=== PATIENT | female | born 1995 | race Caucasian/White ===

== ENCOUNTER → 2020-03-06 08:38 | Outpatient (CLI) | payer BC, SELFPAY ==
--- NOTE | 2020-03-06 08:45 | US_ITS ---
PROCEDURE: US ABDOMEN LIMITED CLINICAL INDICATION: ABD PAIN Nausea and vomiting abdominal pain COMPARISON: No exams were available for comparison FINDINGS: PANCREAS: Unremarkable. No obvious mass or abnormal fluid collection. No ductal dilatation LIVER: No focal liver lesions demonstrated. Homogeneous echogenicity. No intrahepatic biliary ductal dilatation evident. There is appropriate direction of blood flow within a non dilated portal vein RIGHT KIDNEY: Unremarkable. Normal size and echogenicity. No hydronephrosis GALLBLADDER: No gallstones, gallbladder wall thickening, pericholecystic fluid, or biliary dilatation. Gallbladder does not appear contracted with the phrygian cap noted as a normal variant IMPRESSION: Unremarkable limited abdominal ultrasound as detailed above disc Dictated by: Gregory Castro MD 03/06/2020 13:51 Electronically signed by Gregory Castro MD in [place] 03/06/2020 13:51
== END ==
PROVIDERS: PCP Family Medicine; Referring Provider Family Medicine; Visit Provider Family Medicine
DX: R10.11 Right upper quadrant pain (principal)
CPT/HCPCS: 76705

== ENCOUNTER → 2020-06-03 10:35 | Outpatient (CLI) | payer BC, SELFPAY ==
[2020-06-04 14:18] LABS: Covid-19 Nasal PCR Sendout Lex Not Detected
== END ==
PROVIDERS: PCP Family Medicine; Visit Provider Internal Medicine Adolescent Medicine
DX: Z20.828 Contact with and (suspected) exposure to other viral communicable diseases (principal)
CPT/HCPCS: U0004

== ENCOUNTER → 2021-07-08 04:55 | Outpatient (CLI) | payer OTHER, SELFPAY ==
[2021-07-08 05:13] LABS: Coronavirus 19, PCR Not Detected (NotDetected); Influenza A, PCR Not Detected (NotDetected); Influenza B, PCR Not Detected (NotDetected)
== END ==
PROVIDERS: PCP Family Medicine; Visit Provider Emergency Medicine
DX: Z20.822 Contact with and (suspected) exposure to COVID-19 (principal)
CPT/HCPCS: C9803; U0003; U0005

== ENCOUNTER → 2022-03-07 02:18 | Outpatient (CLI) | payer OTHER, SELFPAY ==
--- NOTE | 2022-03-07 02:28 | XR_ITS ---
PROCEDURE INFORMATION: Exam: XR Chest Exam date and time: 03/07/2022 2:21 AM Age: 26 years old Clinical indication: Other: Congestion, upper respiratory infection TECHNIQUE: Imaging protocol: XR of the chest. Views: 2 views. COMPARISON: No relevant prior studies available. FINDINGS: Lungs: Unremarkable. No consolidation. Pleural spaces: No pleural effusion. No pneumothorax. Heart/Mediastinum: Normal heart size. Bones/joints: Unremarkable. IMPRESSION: No acute findings.
== END ==
PROVIDERS: PCP Family Medicine; Visit Provider Emergency Medicine
DX: J06.9 Acute upper respiratory infection, unspecified (principal)
CPT/HCPCS: 71046

== ENCOUNTER 2022-07-30 16:23 | Emergency (ER) | payer OTHER, SELFPAY ==
--- NOTE | 2022-07-30 17:14 | ED_ITS ---
Discharge Plan Disposition Patient Disposition: Home, Self-Care Condition: Good Prescriptions Prescriptions: New prednisone [prednisone] 20 mg tablet 20 mg PO BID 5 Days Qty: 10 0RF whlbvncpukyfzuv-ahfxuyzwv-CL [Bromfed DM] 2-30-10 mg/5 mL Syrup 5 - 10 ml PO Q4H PRN (Reason: Cough) Qty: 240 0RF amoxicillin-pot clavulanate 875-125 mg Tablet 1 tab PO Q12H Qty: 20 0RF Referrals Follow up/Referrals: Wale Mejia MD [Primary Care Provider] - See instructions Discharge ED Provider: Bonnie Fang [facility] [place] HPI General Stated complaint: runny nose, congestion, na Time Seen by Provider: 07/30/22 17:14 History of Present Illness Provider Complaint: Runny nose, headache, cough, congestion, sore throat X 3 days. No fever. Nausea from sinus drainage. OTC meds have not helped. Home COVID negative. Onset (ago): day(s) (3) Relieving factors: none Exacerbating factors: none Associated symptoms: denies other symptoms Treatments prior to arrival: other (CLaritin-D, robitussin) Related Data Previous Rx's Medication Instructions Recorded amoxicillin 875 mg-potassium 1 tab PO Q12H #20 tabs 07/30/22 clavulanate 125 mg tablet kkessnmxzyspnfb-pfzrssrjgavwxza-NH 5 - 10 ml PO Q4H PRN Cough #240 mL 07/30/22 2 mg-30 mg-10 mg/5 mL oral syrup (Bromfed DM) prednisone 20 mg tablet 20 mg PO BID 5 days #10 tabs 07/30/22 Allergies Allergy/AdvReac Type Severity Reaction Status Date / Time No Known Allergies Allergy Unverified 07/30/22 17:20 PFSH PFS Social History Smoking Status: Never smoker alcohol intake: never current occupational status: employed Travel in the last 8 weeks: None ROS Obtained: Yes All systems reviewed & no additional complaints except as documented Constitutional Constitutional: Denies fever(s) and Reports malaise ENT Ears, Nose, Mouth, and Throat: Reports nasal congestion, Reports nasal discharge, Reports sinus pain, Reports sinus pressure and Reports sore throat Respiratory Respiratory: Reports chest congestion and Reports cough Gastrointestinal Gastrointestingal: Reports nausea Physical Exam General General appearance: alert and in no apparent distress Head Head exam: normocephalic Eye Eye exam: Present PERRL ENT ENT exam: Present TM's normal bilaterally Expanded ENT Exam Nose exam: Present sinus tenderness Throat exam: Present other (thick PND) Chest Chest inspection: Present normal inspection and symmetric chest wall rise Respiratory Respiratory exam: Present normal lung sounds bilaterally and respiratory distress Cardiovascular Cardiovascular exam: Present regular rate and normal rhythm Abdominal Exam Abdominal exam: Present soft Neurological Exam Neurological exam: Present alert and oriented X3 Psychiatric Psychiatric exam: Present normal affect and normal mood Skin Skin exam: Present warm, dry and intact Medical Decision Making Bang Inquiry Pt receiving controlled substance: No
[2022-07-30 17:15] VITALS: BP 109/76; PULSE 111; RESP 18; TEMP 37.2; O2SAT 97; BMI 28.1
[2022-07-30 17:32] VITALS: BP 109/76; PULSE 111; RESP 18; TEMP 37.2; O2SAT 97
== END 2022-07-30 17:32 | disposition home or self-care (01) ==
PROVIDERS: Emergency Provider Physician Assistant; PCP Family Medicine
DX: J32.9 Chronic sinusitis, unspecified (principal)
CPT/HCPCS: 99212; G0463

== ENCOUNTER 2024-02-26 08:03 | Emergency (ER) | payer OTHER, SELFPAY ==
[2024-02-26 08:20] VITALS: BP 128/69; PULSE 79; RESP 20; TEMP 36.7; O2SAT 99; BMI 29.6
--- NOTE | 2024-02-26 08:28 | EXP.UTC ---
Discharge Plan Disposition Patient Disposition: Home, Self-Care Condition: Good Prescriptions Prescriptions: New cephalexin 500 mg capsule 500 mg PO QID 7 Days Qty: 28 0RF PNV no.762-ovhi-aamkx acid 28 mg iron- 800 mcg tablet 1 tab PO DAILY 30 Days Qty: 30 5RF Referrals Follow up/Referrals: Wale Mejia MD [Primary Care Provider] - See instructions Activity Restrictions/Add. Instructions Additional Instructions/Restrictions: Drink plenty of fluids. Take tylenol or ibuprofen for pain or fever. Take the medications as directed. Follow up with your regular doctor. GO TO THE ER FOR ANY WORSENING SYMPTOMS We will culture the urine. That will tell what bacteria is causing your infection and which antibiotics will treat it best. Sometimes the first antibiotic we prescribe turns out to not work against different bacteria. So, make sure you follow up within 3 days if you are not getting better. Clinical Impressions Clinical Impression: UTI (urinary tract infection), Instructions Patient Instructions: Diet, Urine Culture, DI for Urinary Tract Infection (UTI) Discharge ED Provider: Ajit Luque [facility] General Stated complaint: frequent urination bladder pain Time Seen by Provider: 02/26/24 08:28 History of Present Illness Provider Complaint: She states that for the past 3 days she has dysuria, urinary frequency. Her period is several days late also. Related Data Previous Rx's Medication Instructions Recorded cephalexin 500 mg capsule 500 mg PO QID 7 days #28 caps 02/26/24 vitamins no.121-iron 28 1 tab PO DAILY 30 days #30 tabs 02/26/24 mg-folic acid 800 mcg tablet Allergies Allergy/AdvReac Type Severity Reaction Status Date / Time No Known Allergies Allergy Unverified 07/30/22 17:20 [facility] Disclaimer: The information contained in this section may have been updated after the patient was seen, as this information can be updated by other users. Medical History (Updated 02/26/24 @ 08:54 by Ajit Luque APRN) No significant past medical history Social History (Updated 07/30/22 @ 17:22 by JOHNATHAN Glynn) Smoking Status: Never smoker alcohol intake: never current occupational status: employed Travel in the last 8 weeks: None ROS Obtained: Yes All systems reviewed & no additional complaints except as documented Constitutional Constitutional: Reports system reviewed and no additional complaints, except as documented, Denies chills and Denies fever(s) Eyes Eyes: Denies eye discharge ENT Ears, Nose, Mouth, and Throat: Denies dysphagia, Denies sore throat and Denies throat swelling Cardiovascular Cardiovascular: Denies chest pain and Denies dyspnea Respiratory Respiratory: Denies chest congestion, Denies cough and Denies dyspnea Gastrointestinal Gastrointestingal: Denies abdominal pain, constipation, diarrhea, dysphagia, nausea or vomiting Genitourinary Female Genitourinary: Reports as per HPI, Reports dysuria, Reports urinary frequency, Denies urinary incontinence, Reports urinary hesitancy and Reports urinary urgency Musculoskeletal Musculoskeletal: Denies arthralgias and Reports back pain Integumentary/Breasts Skin/Breast: Denies rash Neurologic Neurologic: Denies paresthesias Allergic/Immunologic Allergic/Immunologic: Denies throat swelling Physical Exam General General appearance: alert and in no apparent distress Head Head exam: atraumatic and normocephalic Eye Eye exam: Present normal appearance, PERRL and EOMI ENT ENT exam: Present normal exam, mucous membranes moist, TM's normal bilaterally and normal external ear exam Neck Neck exam: Present normal inspection, full ROM and trachea midline; Absent tenderness, meningismus or lymphadenopathy Chest Chest inspection: Present normal inspection and symmetric chest wall rise; Absent tenderness Respiratory Respiratory exam: Present normal lung sounds bilaterally; Absent respiratory distress, wheezes or stridor Cardiovascular Cardiovascular exam: Present regular rate, normal rhythm and normal heart sounds Abdominal Exam Abdominal exam: Present soft and normal bowel sounds; Absent distention, tenderness, guarding, rebound, rigidity, incision, psoas sign, obturator sign, heel tap sign, Oliver's sign, Rovsing's sign or tenderness at McBurney's Point Extremities Exam Extremities exam: Present normal inspection, full ROM and normal capillary refill; Absent tenderness, edema, joint swelling, calf tenderness or cyanosis Back Exam Back exam: Present normal inspection and full ROM; Absent tenderness, CVA tenderness (R) or CVA tenderness (L) Neurological Exam Neurological exam: Present alert, oriented X3 and normal gait Psychiatric Psychiatric exam: Present normal affect and normal mood Skin Skin exam: Present warm, dry, intact and normal color Lymphatic Lymphatic Findings: no adenopathy Medical Decision Making Medical Records Medical records reviewed: No I reviewed the patient's medical records. Bang Inquiry Pt receiving controlled substance: No Lab Data Lab results reviewed: Yes I reviewed the patient's lab results.
[2024-02-26 08:40] LABS: Apearance,Urine Cloudy (Clear); Bilirubin,Urine Negative (Negative); Blood, Urine 3+ (Negative); Color,Urine Yellow (Yellow); Glucose,Urine (UA) Negative (Negative); Ketones,Urine Negative (Negative); Protein,Urine 2+ (Negative); Specific Gravity, Urine >= 1.030 (1.005-1.030)
[2024-02-26 08:41] LABS: UTC Leukocyte Esterase,Urine 2+ (Negative); UTC Nitrate,Urine Negative (Negative); UTC Pregnancy Test, Urine Positive (Negative); Urobilinogen,Urine 1 EU/dl (0.2)
[2024-02-26 08:58] VITALS: BP 128/69; PULSE 79; RESP 20; TEMP 36.7; O2SAT 99
== END 2024-02-26 09:03 | disposition home or self-care (01) ==
PROVIDERS: Emergency Provider Nurse Practitioner Family; PCP Family Medicine
DX: O23.41 Unspecified infection of urinary tract in pregnancy, first trimester (principal); Z3A.01 Less than 8 weeks gestation of pregnancy; R30.0 Dysuria; R35.0 Frequency of micturition
CPT/HCPCS: 81003; 81025; 87086; 99212; 99214; G0463

== ENCOUNTER 2024-04-21 09:01 | Emergency (ER) | payer OTHER, SELFPAY ==
[2024-04-21 09:10] VITALS: BP 107/71; PULSE 87; RESP 20; TEMP 36.9; O2SAT 97; BMI 30.9
[2024-04-21 09:25] LABS: Influenza A, PCR Not Detected (NotDetected); Influenza B, PCR Not Detected (NotDetected)
--- NOTE | 2024-04-21 09:37 | ED_ITS ---
Discharge Plan Disposition Patient Disposition: Home, Self-Care Condition: Good Prescriptions Prescriptions: New azithromycin 250 mg tablet 250 mg PO DIRECTED Qty: 6 0RF Rx Instructions: Take two (2) tablets on day #1, then one (1) tablet day #2 thru #5 No Action PNV no.054-oorb-vbkbq acid 28 mg iron- 800 mcg tablet 1 tab PO DAILY 30 Days Qty: 30 5RF Referrals Follow up/Referrals: Wale Mejia MD [Primary Care Provider] - See instructions Activity Restrictions/Add. Instructions Additional Instructions/Restrictions: Start antibiotic patient to take as ordered for a full length of time even if you feel better. Sinus infections do not get better overnight. It may take 2-3 days to notice much improvement so be sure to use conservative measures as discussed for symptoms. Increase fluids Humidifier/vaporizer as needed Tylenol as needed for fever or pain. If symptoms do not improve or get worse return or be seen in the ER Follow-up with primary care this week Clinical Impressions Clinical Impression: COVID-19 Sinusitis Qualifiers: Sinusitis location: maxillary Chronicity: acute Recurrence: non-recurrent Qualified Code(s): J01.00 - Acute maxillary sinusitis, unspecified Instructions Patient Instructions: Sinusitis, DI for Sinusitis, DI for COVID-19 (Suspected or Confirmed ) Discharge ED Provider: Fabienne ([facility])Birgit [facility] [place] HPI General Stated complaint: cough congestion mucus drainage Mode of Arrival: Ambulatory Source of Information: Patient Limitations: No Limitations Time Seen by Provider: 04/21/24 09:37 Description of Symptoms (Recalled from Triage Doc. by RN): PATIENT C/O COUGH AND CONGESTION SINCE YESTERDAY MORNING. PATIENT IS 14 WEEKS HEENT Symptoms (Recalled from RN notes): Yes Resp Symptoms (Recalled from RN notes): Yes Skin Symptoms (Recalled from RN notes): No MS Symptoms (Recalled from RN notes): No Functional Status (Recalled from RN notes): WNL History of Present Illness Provider Complaint: 28 yr old female presents for cough, pressure and congestion. pt states it feels like it does when she has a sinus infection. Related Data Previous Rx's Medication Instructions Recorded vitamins no.121-iron 28 1 tab PO DAILY 30 days #30 tabs 02/26/24 mg-folic acid 800 mcg tablet azithromycin 250 mg tablet 250 mg PO DIRECTED #6 tabs 04/21/24 Allergies Allergy/AdvReac Type Severity Reaction Status Date / Time No Known Allergies Allergy Unverified 07/30/22 17:20 Worker's Comp Is this a Worker's Comp case?: No [facility] Disclaimer: The information contained in this section may have been updated after the patient was seen, as this information can be updated by other users. Medical History , [employer]) No significant past medical history Social History , [employer]) Smoking Status: Never smoker alcohol intake: never current occupational status: employed Travel in the last 8 weeks: None ROS Obtained: Yes All systems reviewed & no additional complaints except as documented Constitutional Constitutional: Reports system reviewed and no additional complaints, except as documented and Reports as per HPI Eyes Eyes: Reports system reviewed and no additional complaints, except as documented ENT Ears, Nose, Mouth, and Throat: Reports system reviewed and no additional complaints, except as documented, Reports as per HPI, Reports nasal congestion, Reports nasal discharge, Reports sinus pain and Reports sinus pressure Cardiovascular Cardiovascular: Reports system reviewed and no additional complaints, except as documented Respiratory Respiratory: Reports system reviewed and no additional complaints, except as documented, Reports as per HPI, Reports chest congestion and Reports cough Gastrointestinal Gastrointestingal: Reports system reviewed and no additional complaints, except as documented Integumentary/Breasts Skin/Breast: Reports system reviewed and no additional complaints, except as documented Neurologic Neurologic: Reports system reviewed and no additional complaints, except as documented Hematologic/Lymphatic Henatologic/Lymphatic: Reports system reviewed and no additional complaints, except as documented Physical Exam General General appearance: alert and in no apparent distress Eye Eye exam: Present normal appearance ENT ENT exam: Present mucous membranes moist and TM's normal bilaterally Respiratory Respiratory exam: Present normal lung sounds bilaterally Cardiovascular Cardiovascular exam: Present regular rate and normal rhythm Neurological Exam Neurological exam: Present alert and oriented X3 Skin Skin exam: Present warm and intact Medical Decision Making Medical Records Medical records reviewed: Yes I reviewed the patient's medical records. Bang Inquiry Pt receiving controlled substance: No Bang was queried for this patient: No Vital Signs: 04/21/24 09:10 Temperature 98.4 F Temperature Source Oral Pulse Rate [Left Brachial] 87 Respiratory Rate 20 Blood Pressure [Left Arm] 107/71 L Blood Pressure Mean [Left Arm] 83 Blood Pressure Source [Left Arm] Automatic Cuff Blood Pressure Position [Left Arm] Sitting 02 Sat by Pulse Oximetry 97 Oxygen Delivery Method Room Air Lab Data Lab results reviewed: Yes I reviewed the patient's lab results. Orders (Tests/Meds): ORDERS Category Date Time Status Rapid PCR Covid and Flu A/B Stat Lab 04/21/24 09:20 Received
[2024-04-21 09:51] LABS: Coronavirus 19, PCR Detected (NotDetected)
[2024-04-21 10:04] VITALS: BP 107/71; PULSE 87; RESP 20; TEMP 36.9; O2SAT 97
== END 2024-04-21 10:06 | disposition home or self-care (01) ==
PROVIDERS: Emergency Provider Nurse Practitioner Family; PCP Family Medicine
DX: O98.512 Other viral diseases complicating pregnancy, second trimester (principal); U07.1 COVID-19; J01.00 Acute maxillary sinusitis, unspecified; R05.9 Cough, unspecified; R09.81 Nasal congestion; Z3A.14 14 weeks gestation of pregnancy
CPT/HCPCS: 87636; 99212; 99214; G0463

== ENCOUNTER 2024-04-22 08:53 | Emergency (ER) | payer OTHER, MEDICAID, SELFPAY ==
[2024-04-22 08:55] VITALS: BP 143/85; PULSE 113; RESP 20; TEMP 36.9; O2SAT 99; BMI 30.8
--- NOTE | 2024-04-22 09:01 | PC.NURSE ---
Dr. Nelson at bedside
--- NOTE | 2024-04-22 09:10 | PC.NURSE ---
Dr. Nelson at bedside with POCUS
[2024-04-22] MEDS: LACTATED RINGERS 1000ML 1,000 ML 999 ML IV (09:20)
[2024-04-22] MEDS: ACETAMINOPHEN 1,000MG/100ML VIAL 1000 MG IV (09:20)
[2024-04-22 09:34] VITALS: PULSE 98
--- NOTE | 2024-04-22 09:36 | ED_ITS ---
Discharge Plan Disposition Patient Disposition: Home, Self-Care Chief Complaint: Upper Respiratory Infection Prescriptions Prescriptions: No Action PNV no.871-zcxz-jfmro acid 28 mg iron- 800 mcg tablet 1 tab PO DAILY 30 Days Qty: 30 5RF azithromycin 250 mg tablet 250 mg PO DIRECTED Qty: 6 0RF Rx Instructions: Take two (2) tablets on day #1, then one (1) tablet day #2 thru #5 Referrals Follow up/Referrals: Wale Mejia MD [Primary Care Provider] - See instructions Clinical Impressions Clinical Impression: COVID-19 affecting in second trimester Discharge ED Provider: Paco Nelson General Adult HPI General Chief complaint: Upper Respiratory Infection Stated complaint: covid pos, chest congestion, SOA, 17 weeks antepar Time Seen by Provider: 04/22/24 08:59 Mode of Arrival: Ambulatory Source of Information: Patient Limitations: No Limitations Description of Symptoms (Recalled from ER Triage Doc. by RN): covid,increased congestion,cough, History of Present Illness HPI narrative: Patient is a 28-year-old previously healthy female who is a G1, P0 at 14 weeks gestational age presenting today with generalized malaise and concerns with a recent COVID positive test in the setting of . She went to urgent treatment clinic a few days ago and was prescribed a Z-Ming she also took Mucinex got concerned for several reasons including the side effects of those medications but as well as people on Facebook telling her that she needed to be anticoagulated for concern for clot. Patient states that she has had some nasal congestion but no other significant symptoms. Last used Tylenol yesterday. Has not had any medications today. Related Data Previous Rx's Medication Instructions Recorded vitamins no.121-iron 28 1 tab PO DAILY 30 days #30 tabs 02/26/24 mg-folic acid 800 mcg tablet azithromycin 250 mg tablet 250 mg PO DIRECTED #6 tabs 04/21/24 Allergies Allergy/AdvReac Type Severity Reaction Status Date / Time No Known Allergies Allergy Unverified 07/30/22 17:20 [facility] Disclaimer: The information contained in this section may have been updated after the patient was seen, as this information can be updated by other users. 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 significant past medical history Social History , GENERAL OPERATIONS AGENT) Smoking Status: Never smoker alcohol intake: never current occupational status: employed Travel in the last 8 weeks: None ROS Obtained: Yes All systems reviewed & no additional complaints except as documented Physical Exam General General appearance: alert and in no apparent distress Respiratory Respiratory exam: Present normal lung sounds bilaterally and other (Oxygen saturation is 98% on room air no focal adventitious lung sounds no respiratory distress speaking in full sentences); Absent respiratory distress Cardiovascular Cardiovascular exam: Present regular rate, normal rhythm and other (Heart rate in the mid 90s on my exam) Neurological Exam Neurological exam: Present alert and oriented X3 Medical Decision Making Bang Inquiry Pt receiving controlled substance: No Vital Signs: 04/22/24 08:55 04/22/24 09:34 04/22/24 10:00 Temperature 98.4 F Temperature Source Oral Pulse Rate 98 H 76 Pulse Rate [Right] 113 H Respiratory Rate 20 Blood Pressure 114/69 Blood Pressure [Right Arm] 143/85 H Blood Pressure Mean [Right Arm] 104 02 Sat by Pulse Oximetry 99 98 Oxygen Delivery Method Room Air Room Air 04/22/24 10:30 Temperature Temperature Source Pulse Rate 74 Pulse Rate [Right] Respiratory Rate Blood Pressure 109/62 L Blood Pressure [Right Arm] Blood Pressure Mean [Right Arm] 02 Sat by Pulse Oximetry 97 Oxygen Delivery Method Room Air Orders (Tests/Meds): ED MEDICATIONS Discontinued Medications Generic Name Dose Route Start Last Admin Trade Name Freq PRN Reason Stop Dose Admin Acetaminophen 1,000 mg 04/22/24 09:15 04/22/24 09:20 Acetaminophen 1,000mg/100ml Vial IV 04/22/24 09:16 1,000 mg ONCE ONE Administration Lactated Ringer's 1,000 mls @ 999 mls/hr 04/22/24 09:15 04/22/24 09:20 Lactated Ringer's 1000 Ml Bag IV 04/22/24 10:15 999 mls/hr .Q1H1M HARJINDER Administration ORDERS Category Date Time Status POCUS Point of Care (ER Only) Stat Exams 04/22/24 09:04 Ordered Medical Decision Narrative: Patient is a very well-appearing 28-year-old female who has COVID-19 in the setting of . Limited bedside ultrasound indicates that there is a single living IUP consistent with dates she has had normal movements there is normal amniotic fluid etc. on this ultrasound. Baby does not appear to be in any significant distress. Additionally she does not have any significant abdominal pain vaginal bleeding loss of fluid etc. Only complaint is nasal congestion and generalized malaise. I have advised that she stop taking azithromycin which is not indicated given the viral infection. Also reassured her regarding the medication she took earlier today, Mucinex. I advised that she avoid most medications would not be helpful other than Tylenol and potentially Benadryl if she is having significant secretions. We discussed the risk and benefits of Paxlovid and I discussed with her that there is limited information to definitively suggest this will prescribe this in . I also discussed with her that there is no significant evidence to suggest that anticoagulation or antiplatelet therapy in has changed or shown any positive outcomes and that I do not prescribe aspirin in with COVID. She is reassured about this. I do not suspect pulmonary embolism in this particular case either. I will give her IV fluids and Tylenol and reassess. Reassessment 10:43 AM patient feeling much better heart rate in the 70s she is stable for discharge and close outpatient follow-up. Procedures Miscellaneous Procedure Procedure Performed: Limited OB ultrasound Indication: COVID-19 in the setting of . Identified structures: [-Uterus -Left adnexa -Right adnexa -Pouch of Eric] Findings: Uterus: Definitive IUP consistent with dates heart rate 162 Right adnexa: No free fluid Left adnexa: No free fluid Cul de sac: No free fluid Impression: Single living IUP consistent with dates with a heart rate of 162 which is the upper limit of normal Images were sent to permanent archive The study was technically adequate CPT Transabdominal: 93484-03 This study was performed by me, and I personally interpreted all images/videos. Based on my clinical judgement, these images were adequate and did not necessitate further imaging. Critical Care Critical Care Time Critical Care Time: No
[2024-04-22 10:00] VITALS: BP 114/69; PULSE 76; O2SAT 98
[2024-04-22 10:30] VITALS: BP 109/62; PULSE 74; O2SAT 97
--- NOTE | 2024-04-22 10:36 | PC.NURSE ---
Pt resting in bed, SO at bedside. No acute needs. Given warm blanket for comfort. IVF has approx 200ml remaining.
[2024-04-22 10:44] VITALS: BP 109/62; PULSE 85; RESP 18; TEMP 36.9; O2SAT 99
== END 2024-04-22 10:51 | disposition home or self-care (01) ==
PROVIDERS: Emergency Provider Student in an Organized Health Care Education/Training Program; PCP Family Medicine
DX: O98.512 Other viral diseases complicating pregnancy, second trimester (principal); U07.1 COVID-19; R05.9 Cough, unspecified; R09.81 Nasal congestion; Z3A.14 14 weeks gestation of pregnancy
CPT/HCPCS: 96361; 96374; 99284; J0131; J7120

== ENCOUNTER 2024-04-30 04:07 | Emergency (ER) | payer OTHER, MEDICAID, SELFPAY ==
[2024-04-30 04:08] VITALS: BP 127/82; PULSE 99; RESP 17; TEMP 36.7; O2SAT 98; BMI 31.6
--- NOTE | 2024-04-30 04:20 | HMH.EDGENADL ---
Discharge Plan Disposition Patient Disposition: Home, Self-Care Prescriptions Prescriptions: New metoclopramide HCl 5 mg tablet 5 mg PO Q8 PRN (Reason: nausea and vomiting) Qty: 30 1RF No Action PNV no.[id number] acid 28 mg iron- 800 mcg tablet 1 tab PO DAILY 30 Days Qty: 30 5RF azithromycin 250 mg tablet 250 mg PO DIRECTED Qty: 6 0RF Rx Instructions: Take two (2) tablets on day #1, then one (1) tablet day #2 thru #5 Referrals Follow up/Referrals: Wale Mejia MD [Primary Care Provider] - See instructions Activity Restrictions/Add. Instructions Additional Instructions/Restrictions: Please take Reglan as needed for nausea and vomiting. Clinical Impressions Clinical Impression: Sensation of foreign body in esophagus Discharge ED Provider: Binh Reyes General Adult HPI General Chief complaint: PAIN Stated complaint: something lodged in throat Time Seen by Provider: 04/30/24 04:10 History of Present Illness HPI narrative: 28-year-old female, 15 weeks , presents with sensation of something stuck in her throat. She reports that she has been vomiting pretty regularly is secondary to her . She reports that she ate some Croatian earlier tonight and was able to swallow everything okay. When she vomited she felt like something got stuck in her throat on the way back up. She is still able to swallow but feels like there is something there. She denies any airway problems. Related Data Previous Rx's Medication Instructions Recorded vitamins no.121-iron 28 1 tab PO DAILY 30 days #30 tabs 02/26/24 mg-folic acid 800 mcg tablet azithromycin 250 mg tablet 250 mg PO DIRECTED #6 tabs 04/21/24 metoclopramide HCl 5 mg tablet 5 mg PO Q8 PRN nausea and vomiting 04/30/24 #30 tabs Allergies Allergy/AdvReac Type Severity Reaction Status Date / Time No Known Allergies Allergy Unverified 07/30/22 17:20 [facility] Disclaimer: The information contained in this section may have been updated after the patient was seen, as this information can be updated by other users. Medical History , [employer]) No significant past medical history Social History , [employer]INE OPERATOR) Smoking Status: Never smoker alcohol intake: never current occupational status: employed Travel in the last 8 weeks: None ROS Obtained: Yes All systems reviewed & no additional complaints except as documented Physical Exam General General appearance: alert and in no apparent distress Head Head exam: atraumatic and normocephalic Eye Eye exam: Present normal appearance, PERRL and EOMI ENT ENT exam: Present normal oropharynx and normal external ear exam Neck Neck exam: Present normal inspection and full ROM Chest Chest inspection: Present normal inspection and symmetric chest wall rise; Absent tenderness Respiratory Respiratory exam: Present normal lung sounds bilaterally; Absent respiratory distress Cardiovascular Cardiovascular exam: Present regular rate and normal rhythm Abdominal Exam Abdominal exam: Present soft; Absent distention, tenderness or guarding Extremities Exam Extremities exam: Present normal inspection; Absent edema or joint swelling Back Exam Back exam: Present normal inspection; Absent tenderness Neurological Exam Neurological exam: Present alert and oriented X3; Absent motor sensory deficit Psychiatric Psychiatric exam: Present normal affect and normal mood Skin Skin exam: Present warm, dry and normal color Lymphatic Lymphatic Findings: no adenopathy Medical Decision Making Medical Records Medical records reviewed: Yes I reviewed the patient's medical records. Bang Inquiry Pt receiving controlled substance: No Bang was queried for this patient: No Vital Signs: 04/30/24 04:08 04/30/24 05:05 Temperature 98.0 F 98.0 F Temperature Source Oral Oral Pulse Rate 81 Pulse Rate [Right] 99 H Respiratory Rate 17 16 Blood Pressure 118/74 Blood Pressure [Right Arm] 127/82 Blood Pressure Mean [Right Arm] 97 Blood Pressure Source [Right Arm] Automatic Cuff 02 Sat by Pulse Oximetry 98 Oxygen Delivery Method Room Air Room Air Lab Data Lab results reviewed: Yes I reviewed the patient's lab results. Orders (Tests/Meds): ED MEDICATIONS Discontinued Medications Generic Name Dose Route Start Last Admin Trade Name Freq PRN Reason Stop Dose Admin Lidocaine HCl 15 ml 04/30/24 04:20 04/30/24 04:29 Lidocaine 2% Viscous Nguyen 15ml Udc PO 04/30/24 04:21 15 ml ONCE ONE Administration Metoclopramide HCl 5 mg 04/30/24 04:46 04/30/24 04:51 Metoclopramide 10mg Tablet PO 04/30/24 04:47 5 mg ONCE ONE Administration ECG Data Tracing #1: I reviewed this ECG and interpreted as documented below: Sinus rhythm, rate of 99, diffuse T wave inversions noted, Q waves in the precordial leads ECG initial impression date: 04/30/24 ECG initial impression time: 06:05 Medical Decision Narrative: 27-year-old female, 15 weeks , presents with sensation of something stuck in her throat after vomiting.. History was obtained via interactive discussion with patient. On arrival, patient is [afebrile, hemodynamically stable, satting appropriately, alert, oriented x4, GCS 15], moving all extremities spontaneously. Full physical exam performed and significant for no significant physical exam abnormalities. Patient is able to swallow solids and liquids. Differential includes but is not limited to aspirated foreign body, esophageal foreign body, Rosi-Cole tear, Boerhaave's, globus sensation. Patient was given viscous lidocaine with transient improvement in symptoms. Patient was able to drink a soda at bedside without significant difficulty, just reports feels like something is there. Given patient is able to swallow and has been having regular vomiting in setting , she was likely has a Rosi-Cole tear with some esophageal irritation producing a globus sensation. These findings were reviewed to patient. She was discharged in stable condition with return precautions. She is given a dose of Reglan for nausea and given prescription for Reglan as the Zofran that she has been taking has not really been working. Procedures Risk/Benefits of Procedure(s) Were Explained: Yes Critical Care Critical Care Time Critical Care Time: No
[2024-04-30] MEDS: LIDOCAINE 2% VISCOUS SOL 15ML UDC 15 ML PO (04:29)
--- NOTE | 2024-04-30 04:40 | PC.NURSE ---
Dr. Reyes at bedside
[2024-04-30] MEDS: METOCLOPRAMIDE 10MG TABLET 5 MG PO (04:51)
[2024-04-30 05:05] VITALS: BP 118/74; PULSE 81; RESP 16; TEMP 36.7; O2SAT 100
== END 2024-04-30 05:05 | disposition home or self-care (01) ==
PROVIDERS: Emergency Provider Emergency Medicine; PCP Family Medicine
DX: R09.A2 Foreign body sensation, throat (principal)
CPT/HCPCS: 99283